=== PATIENT | female | born 1970 | race Caucasian/White ===

== ENCOUNTER 2022-01-06 17:49 | Emergency (ER) | payer MEDICAID ==
[~2022-01-06] VITALS: Ht 157.5 cm; Wt 60.8 kg
[2022-01-06 18:03] VITALS: BP 182/100
[2022-01-06] MEDS ORDERED: LIDOCAINE 1%-EPI 1:100,000 20 ML VIAL ONE (18:11)
--- NOTE | 2022-01-06 18:57 | NUR ---
Patient discharged to home in stable condition. Written and verbal after care instructions given. Patient verbalizes understanding of instruction.
== END 2022-01-06 18:58 | disposition home or self-care (01) ==
LOC: ER 18:15
DX: L05.01 Pilonidal cyst with abscess (principal); I10 Essential (primary) hypertension; E11.9 Type 2 diabetes mellitus without complications
CPT/HCPCS: 10080; 99282; A6403; J3490

== ENCOUNTER 2024-07-07 11:16 | Emergency (ER) | payer MEDICAID ==
[~2024-07-07] VITALS: Ht 170.2 cm; Wt 62.1 kg
[2024-07-07] MEDS ORDERED: PROPOFOL 0 ML IV ONE (13:22)
[2024-07-07] MEDS ORDERED: FENTANYL PF 100MCG/2ML AMPUL ONE (13:22)
[2024-07-07] MEDS: FENTANYL PF 100MCG/2ML AMPUL IV ONE (14:01)
[2024-07-07] MEDS ORDERED: IBUP-2314 PO (14:23)
[2024-07-07 14:56] VITALS: BP 129/84; TEMP 97.9; O2SAT 99
== END 2024-07-07 15:25 | disposition home or self-care (01) ==
LOC: ER 11:20
DX: S42.91XA Fracture of right shoulder girdle, part unspecified, initial encounter for closed fracture (principal); I10 Essential (primary) hypertension; E11.9 Type 2 diabetes mellitus without complications; Z79.1 Long term (current) use of non-steroidal anti-inflammatories (NSAID); W01.0XXA Fall on same level from slipping, tripping and stumbling without subsequent striking against object, initial encounter; Y93.89 Activity, other specified; Y92.89 Other specified places as the place of occurrence of the external cause; Y99.8 Other external cause status
CPT/HCPCS: 24505; 99285; 73060; 73030; 73020; J3010; J7030; J2704